=== PATIENT | male | born 2000 | race Caucasian/White ===

== ENCOUNTER 2021-04-04 13:05 | Outpatient (REF) | payer BC, SELFPAY ==
[2021-04-04 15:26] LABS: Binax Internal Control QC Valid; Binax Now Covid-19 Ag Negative (Negative)
== END 2021-04-04 13:06 | disposition home or self-care (01) ==
LOC: HO.LAB 13:05
PROVIDERS: Visit Provider Internal Medicine
DX: Z20.822 Contact with and (suspected) exposure to COVID-19 (principal)
CPT/HCPCS: 36415; C9803

== ENCOUNTER 2021-07-20 17:44 | Emergency (ER) | payer BC, SELFPAY ==
[2021-07-20 17:54] VITALS: BP 150/85; PULSE 89; RESP 17; TEMP 36.7; O2SAT 98; BMI 37.3
--- NOTE | 2021-07-20 20:08 | ED_ITS ---
HPI - Skin/Abscess/Foreign Bdy General Chief complaint: Skin/Abscess/Foreign Body Stated complaint: Abscess Time Seen by Provider: 07/20/21 19:24 Source: patient Mode of arrival: ambulatory Limitations: no limitations History of Present Illness HPI narrative: Patient presents to the emergency department for evaluation of a cyst to his tailbone. He reports a similar cyst 2 months ago which required incision and drainage for relief. He was evaluated at an urgent care and was advised to follow up in the emergency department. He had a telehealth visit with his doctor today who prescribed a course of Bactrim, which he has picked up from the pharmacy but has not yet began taking. He is concerned that it may need to be drained again. There was significant discomfort especially with prolonged sitting, he has been applying tea tree oil to the area without significant improvement. Denies fevers, chills, active drainage, back pain, numbness or tingling of the perineum or year the legs, bowel or bladder incontinence, history of IV drug use, immune compromising conditions. Related Data Allergies Allergy/AdvReac Type Severity Reaction Status Date / Time acetaminophen [From TYLENOL] Allergy Unknown RUNNY Verified 07/20/21 18:08 NOSE/FACIAL FLUSHING Review of Systems Review of Systems: Constitutional :? Denies history of same, Denies any other sites involved, Denies IV drug use, Denies history of MRSA, Denies swollen glands, Denies injury, Denies Fever, Denies Chills, + Sig Pain, Denies Systemic symptoms Cardiovascular : No Chest Pain, No SOB Respiratory : No Dyspnea Gastrointestinal : No abdominal pain Musculoskeletal : No Joint Swelling Skin : coccyx with surrounding erythema, No skin laceration, No Foreign bodies, No spreading rash, Denies bites, Denies discharge Neuro : No Weakness, No Numbness/tingling Psych : No SI/HI/thoughts of self injury Yes all other systems are reviewed and are negative PMFSH Past Medical History Attestation statement: The following information was validated with the patient. Source: old records reviewed Medical History Hypertension Social History Social History Advance Directives: No Advance Directives Information Provided: No Physical Exam Vital Signs: Vital Signs: Last Vital Signs Temp 98.1 F 07/20/21 17:54 Pulse 89 07/20/21 17:54 Resp 17 07/20/21 17:54 BP 150/85 H 07/20/21 17:54 Pulse Ox 98 07/20/21 17:54 BMI result Body Mass Index 37.3 Vital signs have been reviewed as normal and appeared to be correct. Blood pressure Elevated 150/85. Heart rate normal.? Respiration rate normal. Temperature normal.? Oxygen saturation normal. Appearance: Alert.?Oriented to person, place and time. No acute distress.?Normal affect. Eyes: Pupils equal, round and reactive to light.? ENT: Pharynx normal.?? Neck: Normal inspection.? Neck supple.?? CVS: Heart sounds normal. Normal heart rate and rhythm.? Pulses normal.?? Respiratory: No respiratory distress.? Lung sounds clear to auscultation bilaterally?? Abdomen: Soft and non-tender. Skin: Skin warm and dry.? type of gluteal cleft with 4 scabbed/crusted lesions, mild surrounding erythema, no palpable warmth, no areas of fluctuance. Extremities: No lower extremity edema.? Neuro: Moves all extremities spontaneously. Sensation intact bilaterally. CN II- XII intact. No focal neuro deficits. Ambulates with normal steady gait. Course Course Course Narrative: Patient is a 21-year-old male with a past medical history of hypertension and pilonidal cyst. presents to the emergency department for evaluation of concern for recurrent pilonidal cyst. Has lesions and redness to the top of the gluteal cleft. bedside ultrasound without visible abscess for drainage, and there is no fluctuance. Area appears cellulitic, has already been prescribed a course of antibiotics which he has not yet began. Not consistent with perianal abscess, epidural abscess, no history of Crohn's disease, without signs of systemic infection or immunocompromising conditions. Discussed conservative management, completion of antibiotic course as prescribed by his doctor, provided with contact information for outpatient follow-up with General surgery as this has been recurrent for him. Discussed reasons return back to the emergency department. All questions were answered. Discharge Plan Discharge Clinical Impression: Pilonidal disease Patient Disposition: Home, Self-Care Instructions: Cellulitis (ED) Additional Instructions: Take the antibiotics as prescribed by your doctor. Arrange for follow-up visit within 5-7 days. Apply warm moist compresses, and try soaked and the bath today. ibuprofen as needed for pain. Return to the emergency department with any new or worsening symptoms or concerns such as increased redness, swelling pus or drainage, fevers, chills worsening, back pain, numbness or tingling, weakness, chest pain, shortness of breath. You may contact the general surgeon's office for further evaluation as this has been recurrent for you. Referrals: Rasta Patel MD [Physician] - 2 weeks (recurrent pilondial cyst)
== END 2021-07-20 20:54 | disposition home or self-care (01) ==
PROVIDERS: Emergency Provider Internal Medicine
DX: L05.91 Pilonidal cyst without abscess (principal); L02.212 Cutaneous abscess of back [any part, except buttock and flank]; Z79.899 Other long term (current) drug therapy
CPT/HCPCS: 99282; 99284

== ENCOUNTER 2023-08-08 08:57 | Outpatient (AMB) | payer OTHER, SELFPAY ==
--- NOTE | 2023-08-08 09:06 | A.OFFPC_ITS ---
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: No Accompanied by: Self / Same As Patient Allergies ibuprofen [From Advil] Allergy (Intermediate, Verified 08/08/23 09:19) Flushing acetaminophen [From TYLENOL] Allergy (Unknown, Verified 08/08/23 09:19) RUNNY NOSE/FACIAL FLUSHING Medication List - Last Reconciled 08/08/23 by Yudi Hsu CNP No Known Home Meds Tobacco use date assessed: 08/08/23 Dental Screening Dental Screen Date: 08/08/23 Did you have a dental visit in the last 12 months?: Yes Did you have a dental problem in the last 6 months where you did not have access to dental care?: No Was dental information given to patient?: Patient has dentist HPI HPI Comments History of Present Illness Details New patient Prior PCP:? 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 Martinez. He found out that practice was closed and office building was sold and therefore unable to obtain his medical record Last office visit/CPE: About 5 years Acute issue(s): Recurrent pilonidal cyst to his coccyx. No acute symptoms at this time. Requests a referral for consult Reports h/o HTN, was on Lisinopril until 2019. He stopped taking the medication after her ran out of refill and did not have a PCP to renew the medication He notes that he has not been making healthy dietary or exercising PMHx: HTN (not on meds), myopia SurgHx: None FHx: Mom: HTN, MGM SocHx: Nonsmoker; vapes daily for the past 5 years, drinks alcohol on weekends. Smokes 2g cannabis daily for the past 5 years He notes that he is sexually active, in a monogamous relationship, and has no concerns for STD PFSH Medical History (Updated 08/08/23 @ 09:56 by Yudi Hsu CNP) Hypertension Surgical History (Updated 08/08/23 @ 09:20 by LEE ANN Armstrong) No pertinent past surgical history Family History (Updated 08/08/23 @ 09:21 by LEE ANN Armstrong) Mother High blood pressure Maternal Grandmother High blood pressure Social History (Updated 08/08/23 @ 09:17 by LEE ANN Armstrong) Household Members: Family Housing: Apartment Are you a primary care companion to a significant other at home: No Do you presently have visiting nurse or other home services: No Alcohol intake: current Alcohol intake frequency: holidays/special occasions only Patient Tobacco Use Status: Former Tobacco user e-Cigarette/Vaping Use: Currently Using Second Hand Smoke Exposure: No service: No Current occupational status: employed 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 1. Little interest or pleasure in doing things: several days 2. Feeling down, depressed, or hopeless: not at all 3. Trouble falling or staying asleep, or sleeping too much: not at all 4. Feeling tired or having little energy: not at all 5. Poor appetite or overeating: several days 6. Feeling bad about yourself - or that you are a failure or have let yourself or your family down: not at all 7. Trouble concentrating on things, such as reading the newspaper or watching television: not at all 8. Moving or speaking so slowly that other people could have noticed. Or the opposite - being so fidgety or restless that you have been moving around a lot more than usual: not at all 9. Thoughts that you would be better off or of hurting yourself in some way: not at all Total score: 2 Depression Screening Interpretation: Negative Depression Screening Done: Yes 83158 - PHQ-9 Billing: Yes Source: Developed by Drs. Oswaldo Berger, Shara De Jesus, José Miguel Barriga and colleagues, with an educational sierra from [employer]. Thrive Questionnaire Date Thrive assessed: 08/08/23 I am a: Patient What is your living situation today?: I have a steady place to live Within the past 12 months, did the food you bought not last and you didn't have the money to get more?: Never true Within the past 12 months, did you worry whether your food would run out before you got money to buy more?: Never true Do you have trouble paying for medicines?: No Do you have trouble getting transportation to medical appointments?: No Do you have trouble paying your heating and electricity bill?: No Do you have trouble taking care of your child, family member or friend?: No Do you have trouble with day-to-day activities such as bathing, preparing meals, shopping, managing finances, etc.?: No Are you currently unemployed and looking for a job?: No Are you interested in more education?: No Please select the resources that you would like help with: None Currently or been in a relationship where the following occur: no concerns reported THRIVE Score: 0 AUDIT C Alcohol Use Questionnaire (AUDIT-C) 1. How often do you have a drink containing alcohol?: Monthly or less 2. How many drinks containing alcohol do you have on a typical day when you are drinking?: 3 or 4 3. How often do you have six or more drinks on one occasion?: Never Total Score: 2 DANII-7 AMB Questionnaire DANII-7 Date DANII - 7 assessed: 08/08/23 Feeling nervous, anxious, or on edge: 0 = Not at all Not being able to stop or control worryin = Not at all Worrying too much about different things: 1 = Several days Trouble relaxin = Not at all Being so restless that it is hard to sit still: 0 = Not at all Becoming easily annoyed or irritable: 0 = Not at all Feeling afraid as if something awful might happen: 0 = Not at all Total DANII-7 score (0-4 normal; 5-9 mild; 10-14 moderate; 15-21 severe): 1 Source: Developed by Drs. Oswaldo Berger, Shara De Jesus, José Miguel Barriga and colleagues, with an educational sierra from [employer]. DANII-7 Assessment Billing DANII-7 Assessment Tool: DANII-7 Assessment 44933 Review of Systems Const Details: Denies chills, Denies fatigue, Denies fever(s), Denies headache(s) and Denies weakness HEENT Denies change in vision, Denies dizziness, Denies headache(s), Denies hearing loss, Denies nasal congestion, Denies sinus pain, Denies sinus pressure and Denies sore throat Card Denies chest pain, Denies lightheadedness, Denies dyspnea and Denies other (palpitations) Resp Denies cough, Denies dyspnea and Denies wheezing GI Denies abdominal pain, Denies melena, Denies hematochezia, Denies change in bowel habits, Denies dyspepsia and Denies nausea Denies hematuria and Denies dysuria Musc Denies abnormal gait, Denies myalgias, Denies arthralgias, Denies numbness and Denies tingling Skin/Breast Denies rash, Denies unusual bruising and Denies wounds Neuro Denies abnormal gait, Denies dizziness, Denies headache(s), Denies memory loss, Denies numbness, Denies Sensory deficit (Neuro), Denies tingling and Denies weakness Psych Denies anxiety, Denies depression and Denies memory loss Endo Denies cold intolerance, Denies fatigue, Denies heat intolerance, Denies polydipsia and Denies polyuria Jake/Lymph Denies easy bleeding and Denies easy bruising Aller/Immun Denies wheezing Physical exam (Primary Care) Vital Signs: Last Vital Signs Temp 97.5 F 08/08/23 09:07 Pulse 71 08/08/23 09:07 Resp 13 08/08/23 09:07 BP 126/64 08/08/23 09:07 Pulse Ox 99 08/08/23 09:07 Oxygen Delivery Method Room Air 08/08/23 09:07 BMI result Body Mass Index 35.7 Tobacco/Smoking Status: Tobacco use Status Patient Tobacco Use Status Former Tobacco user 08/08/23 09:16 e-Cigarette/Vaping Use Currently Using 08/08/23 09:16 Depression Screening Interpretation: Negative Currently or been in a relationship where the following occur: no concerns reported Const Other: General: no acute distress, well developed, alert and awake Nutritional Appearance: well nourished Orientation/consciousness: patient oriented x3 HENMT Head: Yes normocephalic and Yes atraumatic Ears: hearing grossly normal bilaterally and TM's normal bilaterally General nose exam: Normal external nose present and Normal nares present Mouth: Normal oral and palatal mucosa present and moist mucous membranes Teeth and gingiva: dentition normal Throat: Yes oropharynx normal Eyes Pupils: Equal, round and reactive pupils present and Pupil accommodation reflex normal EOM: EOMs intact bilaterally Neck Neck: Yes normal visual inspection, Yes no lymphadenopathy and Yes trachea midline Thyroid: Thyroid normal Carotids: no bruits Lymphatic: no lymphadenopathy noted Chest Chest palpation & inspection: normal inspection of the chest Resp Effort & Inspection: normal respiratory effort Auscultation: clear to auscultation bilaterally Cardio Rate: regular rate Rhythm: regular rhythm Heart sounds: S1 normal heart sound present, S2 normal heart sound present, no gallops, no murmurs and no rubs Bruits: no abdominal aortic bruits and no carotid bruits GI Palpation (GI): No Abdominal aortic bruit present, Soft to palpation, nontender, No hepatosplenomegaly present and No Rebound tenderness present Auscultation: normal bowel sounds General: Yes no CVA tenderness Back/Spine/Pelvis Back: no CVA tenderness Cervical Spine: cervical ROM normal and No Cervical spine tenderness Thoracic/Lumbar Spine: thoraco-lumbar ROM normal, No pain with thoraco-lumbar ROM, No thoracic spinal tenderness and No lumbar spinal tenderness Skin General: warm and dry. Normal skin color. Normal skin turgor Lesions: no lesions Rashes: no rashes Trauma: no lacerations or abrasions Wounds: no wounds Nails: normal Neuro General: patient oriented x3, gait normal and CN's II-XI intact bilaterally Cranial nerves: Yes Equal, round and reactive pupils present Cognition (Neuro): normal cognition Gait exam (Neuro): Normal gait present Motor exam (neuro): 5/5 motor strength present throughout Sensory Exam: No Sensory deficit (Neuro) Deep tendon reflexes (DTR's): Right patellar reflex intensity grade: 2+ and Left patellar reflex intensity grade: 2+ Extrem General: Yes normal to inspection, No edema and No calf tenderness Psych Appearance: grossly normal Affect: normal affect Attitude: cooperative Thought process: Normal thought process present Assessment and Plan Assessment & Plan (1) Normal physical examination, routine: Code(s): Z00.00 - Encounter for general adult medical examination without abnormal findings Plan: No significant physical restrictions or limitations noted Healthy diet and routine exercise encouraged Advised to get urinalysis and fasting blood work done Follow-up in 1 month for hypertension and labs review Return sooner with symptoms or concerns Verbalized understanding and agreed with treatment plan (2) Hypertension: Code(s): I10 - Essential (primary) hypertension Plan: History of hypertension. He was on lisinopril until 4 years ago Resting blood pressure is 120/80, within goal of less than 140/90 Low-sodium diet encouraged Follow-up in 1 month or return sooner with symptoms or concerns Verbalized understanding and agreed with treatment plan (3) Obesity (BMI 30-39.9): Code(s): E66.9 - Obesity, unspecified Plan: He currently weighs 256 lb, BMI is 35.7 Healthy diet and routine exercise encouraged Referred to [facility] dietitian/auto phone installer (4) Chronic recurrent pilonidal cyst: Code(s): L05.91 - Pilonidal cyst without abscess Plan: No acute signs and symptoms Referred to [facility] general surgery Follow-up with symptoms or concerns Verbalized understanding and agreed with treatment plan (5) Current every day vaping: Code(s): Z72.89 - Other problems related to lifestyle Plan: He has been vaping daily for the past 5 years Instructed on the health risks and complications of vaping and encouraged to stop vaping He verbalized understanding and agreed with the plan (6) Myopia of both eyes: Code(s): H52.13 - Myopia, bilateral Plan: Corrected with prescription glasses (7) Laboratory tests ordered as part of a complete physical exam (CPE): Code(s): Z00.00 - Encounter for general adult medical examination without abnormal findings Plan: Fasting labs ordered as part of a complete physical exam. Advised to fast for at least 10 hours before getting labs drawn. May drink water Verbalized understanding and agreed with treatment plan. Orders: Orders UA CC w/rflx Micro + Cult Today Z00.00 - Encounter for general adult medical examination without abnormal findings Complete Blood Count Auto Diff Today Z00.00 - Encounter for general adult medical examination without abnormal findings Comprehensive Watson. Panel Fast Today Z00.00 - Encounter for general adult medical examination without abnormal findings Lipid Panel Today Z00.00 - Encounter for general adult medical examination without abnormal findings TSH reflex Free T4 Today Z00.00 - Encounter for general adult medical examination without abnormal findings Referrals Nutrition/Dietitian Referral E66.9 - Obesity, unspecified General Surgery Referral L05. - Pilonidal cyst without abscess Coding Level of Care Code New Pt Level 4 (19120) New Pt Prev Care 18-39yr(20696 Diagnoses Normal physical examination, routine Z00.00 Hypertension I10 Obesity (BMI 30-39.9) E66.9 Chronic recurrent pilonidal cyst L05.91 Current every day vaping Z72.89 Myopia of both eyes H52.13 Laboratory tests ordered as part of a complete physical exam (CPE) Z00.00 Additional Codes DANII-7 Assessment Billing - DANII-7 Assessment Tool: DANII-7 Assessment 25683 ([id number])
[2023-08-08 09:07] VITALS: BP 126/64; PULSE 71; RESP 13; TEMP 36.4; O2SAT 99; BMI 35.7
[2023-08-08 09:37] VITALS: BP 120/80
== END 2023-08-08 09:52 | disposition home or self-care (01) ==
PROVIDERS: Visit Provider Nurse Practitioner Family
DX: Z00.00 Encounter for general adult medical examination without abnormal findings (principal); I10 Essential (primary) hypertension; Z68.35 Body mass index [BMI] 35.0-35.9, adult; E66.9 Obesity, unspecified; L05.91 Pilonidal cyst without abscess; Z72.89 Other problems related to lifestyle; H52.13 Myopia, bilateral
CPT/HCPCS: 99385

== ENCOUNTER 2023-08-08 09:58 | Outpatient (REF) | payer OTHER, SELFPAY ==
[2023-08-08 11:40] LABS: MANUAL DIFF FLAG NO
[2023-08-08 11:40] LABS: Appearance Urine Clear; Color Urine Yellow; Glucose Urine UA Negative (Negative); Leukocyte Esterase Urine Negative (Negative); Nitrite Urine Negative (Negative); Specific Gravity - Urine <= 1.005 (1.005-1.025); Urine Blood Negative (Negative); Urine Ketones Negative (Negative); Urine Protein Negative (Neg-Trace)
[2023-08-08 11:46] LABS: Basophils Absolute Auto 0.1 X10*3/uL (0.0-0.2); Basophils Percent Auto 0.7 % (0-2); Eosinophils Absolute Auto 0.2 X10*3/uL (0.0-0.4); Eosinophils Percent Auto 1.6 % (0-4); Hematocrit 44.6 % (42.0-52.0); Hemoglobin 15.1 g/dl (14.0-18.0); Imm Gran Abs Auto 0.03 X10*3/uL (0.00-0.03); Imm Gran Pct Auto 0.3 % (0.0-0.4); Lymphocytes Absolute Auto 2.8 X10*3/uL (1.2-4.9); Lymphocytes Percent Auto 31.2 % (20-40); Mean Corpuscular HGB Conc 33.9 g/dl (31.0-36.0); Mean Corpuscular Hemoglobin 29.3 pg (27.0-33.0); Mean Corpuscular Volume 86.6 fL (80.0-98.0); Mean Platelet Volume 9.5 fL (9.4-12.4); Monocytes Absolute Auto 0.6 X10*3/uL (0.1-1.2); Neutrophils Absolute Auto 5.4 x10*3/uL (2.0-8.3); Neutrophils Percent Auto 59.2 % (45-73); Platelet Count 234 X10*3/uL (160-400); Red Blood Count 5.15 X10*6/uL (4.60-5.80); Red Cell Distribution Width 12.4 % (11.0-16.0); White Blood Count 9.1 X10*3/uL (4.8-10.8)
[2023-08-08 12:54] LABS: Alanine Aminotransferase 24 U/L (0-40); Albumin Level 4.7 g/dL (3.5-5.0); Alkaline Phosphatase 69 U/L (39-117); Anion Gap 14 (12-20); Aspartate Amino Transferase 18 U/L (5-37); Bilirubin Total 0.4 mg/dL (0.0-1.0); Blood Urea Nitrogen 8 mg/dL (9-16); Calcium 9.9 mg/dL (8.4-10.2); Carbon Dioxide 28 mmol/L (22-29); Chloride 105 mmol/L (96-108); Cholesterol 135 mg/dL (<200); Estimated Glomerular Filt Rate > 60; Glucose Fasting 97 mg/dL (60-99); HDL Cholesterol 32 mg/dL (>40); LDL Cholesterol Calculated 86 mg/dL (<100); Potassium 4.6 mmol/L (3.3-5.1); Sodium 142 mmol/L (135-145); Total Protein 7.7 g/dL (6.5-8.0); Triglycerides 88 mg/dL (<150)
== END 2023-08-08 09:59 | disposition home or self-care (01) ==
LOC: HO.WFDLDS 09:58
PROVIDERS: Visit Provider Nurse Practitioner Family
DX: Z00.00 Encounter for general adult medical examination without abnormal findings (principal); Z13.6 Encounter for screening for cardiovascular disorders
CPT/HCPCS: 36415; 80053; 80061; 81003; 84443; 85025

== ENCOUNTER 2023-08-11 14:53 | Outpatient (AMB) | payer OTHER, SELFPAY ==
--- NOTE | 2023-08-11 14:57 | A.OFFVIS_ITS ---
Vital Signs 08/11/23 15:01 Height 5 ft 11 in Weight 251 lb BMI 35.0 BP 145/86 H Blood Pressure Location Rt brachial Position Sitting Pulse 101 H Intake Visit Reasons: pilonidal cyst Intake Note: Patient referred after ER visit in June. Patient c/o: pilonidal cyst on gluteal cleft. Present for 2yrs. Previous txt includes different antibiotics. Information Services Assistant Required: No Accompanied by: Joy girlfriend Allergies ibuprofen [From Advil] Allergy (Intermediate, Verified 08/11/23 15:03) Flushing acetaminophen [From TYLENOL] Allergy (Unknown, Verified 08/11/23 15:03) RUNNY NOSE/FACIAL FLUSHING HPI Comments Details: Patient presents with his significant other for evaluation of a several year history of symptomatic pilonidal cyst of the cleft. He has had this lanced at least 2-3 times by various ERs. This latest episode the cyst spontaneously drained. This happened several days ago. Presents here for further evaluation. Chart was reviewed patient evaluated [facility] Medical History Hypertension Surgical History No pertinent past surgical history Family History Mother High blood pressure Maternal Grandmother High blood pressure Social History Household Members: Family Both parents involved: Yes Caregiver staying overnight: No Housing: Apartment Are you a primary child care worker to a significant other at home: No Do you presently have visiting nurse or other home services: No 75 years or older and lives alone: No Alcohol intake: current Alcohol intake frequency: holidays/special occasions only Patient Tobacco Use Status: Former Tobacco user e-Cigarette/Vaping Use: Currently Using Second Hand Smoke Exposure: No service: No Current occupational status: employed 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 No active abscess or cellulitis d emonstrated. Assessment & Plan Assessment & Plan (1) Pilonidal cyst of consuelo cleft: Code(s): L05.91 - Pilonidal cyst without abscess Category: Surgical Plan Patient would like to have this excised. Risks, benefits, alternatives of the procedure were extensively reviewed with the patient which included but not limited to bleeding, infection, recurrence, numbness, pain, scarring, wound dehiscence if the patient is not sedentary during the healing process and the patient wishes to proceed. All questions answered. Arrangements were made for this. Coding Level of Care Code New Pt Level 5 (83600) Diagnoses Pilonidal cyst of consuelo cleft L05.91
[2023-08-11 15:01] VITALS: BP 145/86; PULSE 101; BMI 35.0
== END 2023-08-11 15:21 | disposition home or self-care (01) ==
PROVIDERS: Visit Provider Surgery
DX: L05.91 Pilonidal cyst without abscess (principal)
CPT/HCPCS: 99204

== ENCOUNTER → 2023-08-11 14:53 | Outpatient (BNVA) | payer OTHER, SELFPAY | PROVIDERS: Visit Provider Surgery ==

== ENCOUNTER 2023-08-27 14:39 | Outpatient (AMB) | payer OTHER, SELFPAY ==
[2023-08-27 14:41] VITALS: BMI 37.1
--- NOTE | 2023-08-27 14:41 | A.OFFVIS_ITS ---
VS Expanded 08/27/23 14:41 09/02/23 21:07 Height 5 ft 11 in 5 ft 11 in Weight 265 lb 14.04 oz 266 lb BMI 37.1 37.1 Intake Visit Reasons: Obesity Allergies ibuprofen [From Advil] Allergy (Intermediate, Verified 08/11/23 15:03) Flushing acetaminophen [From TYLENOL] Allergy (Unknown, Verified 08/11/23 15:03) RUNNY NOSE/FACIAL FLUSHING Nutrition Presentation Details: Pt presents for MNT for obesity. Pt was referred by PCP Janet Powell. Pt reports lacking meal routine 10-1 pm L: chicken 2 empanadas, and beef tacos and drink mountain dew or water or 2 peanut butter and jelly sand and vit water 6-10 pm dinner : pasta /luis , broccoli , water or juice or cranberry juice snack : dorito sweet and spicy kettle corn or snacks stopped vaping 1 1/2 wks ago, denies diarrhea/constipation denies ETOH physical activity: sedentary BS Monitoring Most Recent Diabetes Results: Cholesterol 135 mg/dL (<200) 08/08/23 HDL Cholesterol 32 mg/dL (>40) L 08/08/23 Triglycerides 88 mg/dL (<150) 08/08/23 Creatinine 1.07 mg/dL (0.5-1.4) 08/08/23 Blood Urea Nitrogen 8 mg/dL (9-16) L 08/08/23 Sodium 142 mmol/L (135-145) 08/08/23 Potassium 4.6 mmol/L (3.3-5.1) 08/08/23 Chloride 105 mmol/L (96-108) 08/08/23 Carbon Dioxide 28 mmol/L (22-29) 08/08/23 Calcium 9.9 mg/dL (8.4-10.2) 08/08/23 AST 18 U/L (5-37) 08/08/23 ALT 24 U/L (0-40) 08/08/23 Total Protein 7.7 g/dL (6.5-8.0) 08/08/23 Albumin 4.7 g/dL (3.5-5.0) 08/08/23 GAQ-Nxohvwe-Mn.Jeor Equation Height: 5 ft 11 in Weight: 266 lb Resting Metabolic Rate: 2214.47 Calculated Activity Level: Sedentary Calories Needed to Maintain Weight: 2657.36 Diagnosis Nutrition problem #1: excessive energy intake and food nutri know defi As related to (etiology) #1: diagnosis As evidenced by (sign/symptom) #1: knowledge deficit of diet Monitoring/Goals Nutrition problem monitoring: level of knowledge/skill, total PRO intake and weight Nutrition goal/outcome: wt loss 5lbs in 2 months Learning/Education Readiness to learn: good Stages of change: preparation PFSH Medical History Hypertension Surgical History No pertinent past surgical history Family History Mother High blood pressure Maternal Grandmother High blood pressure Social History Household Members: Family Both parents involved: Yes Caregiver staying overnight: No Housing: Apartment Are you a primary healthcare administrative assistant to a significant other at home: No Do you presently have visiting nurse or other home services: No 75 years or older and lives alone: No Alcohol intake: current Alcohol intake frequency: holidays/special occasions only Patient Tobacco Use Status: Former Tobacco user e-Cigarette/Vaping Use: Currently Using Second Hand Smoke Exposure: No service: No Current occupational status: employed 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 Cognitive needs: No Hearing needs: No Vision needs: Yes Assessment & Plan Assessment & Plan (1) Obesity (BMI 30-39.9): Code(s): E66.9 - Obesity, unspecified Category: Medical Plan: Wt: 121 Kg ( 07/2023 ) Est kcal needs as per MSJ: 6745-5872 (40% carb, 30% protein/fat) Est fluid needs as per 25-30 ml/d: 3600 Est prot per day as per 1 g/kg bw: 121 Recommend fiber intake : 8-10 g per day and gradually increase to 25-28 g per day for women and 35-38 g for men or as tolerated Recommend sodium intake per day : less than 2000 mg Educated patient on: ( R = reviewed V = verbalizes understanding N/R = needs review N/A = not applicable * Food sources of carbohydrate, adequate serving sizes and its role in various health conditions: R * Differences between complex carbohydrates a simple carbohydrates, role of fiber in diet: R * Lean protein sources of foods: R * Differences between types of fats and role in diet (mono on saturated fat fatty acids, saturated fatty acids, trans fats): R V N/R * Food sources of sodium in salt and healthy modifications for heart health in kidney health: R V R/V * Vitamins and minerals: R V N/R * Healthy plate method concept: R * Physical activity: Benefits a precaution: R V N/R * Patient Instructions: Practice mindful eating Work on having 3 scheduled meals per day following healthy plate method Coding Level of Care Code Nutr Indiv Intake (45856) Diagnoses Obesity (BMI 30-39.9) E66.9 Time Spent (min) 30
[2023-09-02 21:07] VITALS: BMI 37.1
== END 2023-08-27 15:13 | disposition home or self-care (01) ==
PROVIDERS: Visit Provider Dietitian, Registered
DX: E66.9 Obesity, unspecified (principal)

== ENCOUNTER → 2023-08-27 14:39 | Outpatient (BNVA) | payer OTHER, SELFPAY | PROVIDERS: Visit Provider Dietitian, Registered | DX: E66.9 Obesity, unspecified (principal); Z68.37 Body mass index [BMI] 37.0-37.9, adult; Z71.3 Dietary counseling and surveillance | CPT/HCPCS: 97802 ==

== ENCOUNTER 2023-09-05 05:42 | Day surgery (SDC) | payer OTHER, SELFPAY ==
[2023-09-03 13:59] VITALS: BMI 35.0
--- NOTE | 2023-09-04 12:43 | MHC.SHP ---
Pre-Procedural Eval Section A - 24 Hr Update-Section A only Date of Service: 09/04/23 The patient is an INPATIENT: No Changes since office visit: No Cold of Flu in the past 2 weeks, No New Medical Problems, No Changes in Medication and No Patient answered all questions Section B - Complete if H&P > 30 days Chief Complaint: Pilonidal cyst without abscess Allergies: Allergies Allergy/AdvReac Type Severity Reaction Status Date / Time ibuprofen [From Advil] Allergy Intermediate Flushing Verified 08/11/23 15:03 acetaminophen [From TYLENOL] Allergy Unknown RUNNY Verified 08/11/23 15:03 NOSE/FACIAL FLUSHING Plan I have reviewed the history and physical and performed a pertinent physical examination on my patient. No changes have occurred unless specified. Time Spent With Patient Time: Total time managing care of this patient today ____ minutes.
[2023-09-05 05:56] VITALS: BP 156/85; PULSE 80; RESP 20; TEMP 36.8; O2SAT 98; BMI 36.7
[2023-09-05] MEDS: Lactated Ringers 1,000 ML 100 ML IVCONT (06:22)
--- NOTE | 2023-09-05 07:10 | P.CONAN_ITS ---
Documented by User: Linda Orr NP 09/04/23 09:52 HPI - Anesthesia Eval Consult details Narrative: 23yo M for Wide Local Excision of Pilonidal Cyst Juliano Cleft PMFSH Active Problems Active Problems: All Active Problems Pilonidal cyst of juliano cleft (Acute) Myopia of both eyes (Acute) Current every day vaping (Acute) Chronic recurrent pilonidal cyst (Acute) Obesity (BMI 30-39.9) (Acute) Hypertension (Acute) Normal physical examination, routine (Acute) Laboratory tests ordered as part of a complete physical exam (CPE) (Acute) Past Medical History Medical History Hypertension Family History Family History Mother High blood pressure Maternal Grandmother High blood pressure Surgical History Surgical History No pertinent past surgical history Social History Social History Household Members: Family Housing: Apartment Are you a primary special needs child caregiver to a significant other at home: No Do you presently have visiting nurse or other home services: No Alcohol intake: current Alcohol intake frequency: does not drink Patient Tobacco Use Status: Former Tobacco user Tobacco use type: Smokeless Tobacco e-Cigarette/Vaping Use: Currently Using Second Hand Smoke Exposure: No Are you DNR?: No Advance Directives: No Advance Directives Information Provided: Yes service: No Current occupational status: employed 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 Cognitive needs: No Hearing needs: No Vision needs: Yes Meds Allergies Allergy/AdvReac Type Severity Reaction Status Date / Time ibuprofen [From Advil] Allergy Intermediate Flushing Verified 09/05/23 06:10 acetaminophen [From TYLENOL] Allergy Unknown RUNNY Verified 09/05/23 06:10 NOSE/FACIAL FLUSHING Home Medications ?Medication ?Instructions ?Recorded ?Confirmed ?Last Taken ?Type No Known Home Meds 08/08/23 09/05/23 Unknown History Exam Height,Weight and Vital Signs: Height 5 ft 11 in Weight 113.852 kg Pertinent Lab Results Pertinent Lab Results: Laboratory Tests 08/08/23 10:01 WBC 9.1 Hgb 15.1 Hct 44.6 Plt Count 234 Sodium 142 Potassium 4.6 Chloride 105 Carbon Dioxide 28 BUN 8 L Creatinine 1.07 Assessment and Plan Assessment Anesthesia Assessment: Chart Reviewed Documented by User: Blanca Noble DO 09/05/23 07:12 HPI - Anesthesia Eval Consult details Narrative: 23yo M for Wide Local Excision of Pilonidal Cyst Cleft. Vapes and uses marijuana. stopped vaping 2.5 weeks ago. PMFSH Past Medical History Medical History Hypertension Family History Family History Mother High blood pressure Maternal Grandmother High blood pressure Family history of problems with anesthesia: No Surgical History Surgical History No pertinent past surgical history History of Problems with Anesthesia: No Social History Social History Household Members: Family Housing: Apartment Are you a primary special needs child caregiver to a significant other at home: No Do you presently have visiting nurse or other home services: No Alcohol intake: current Alcohol intake frequency: does not drink Patient Tobacco Use Status: Former Tobacco user Tobacco use type: Smokeless Tobacco e-Cigarette/Vaping Use: Currently Using Second Hand Smoke Exposure: No Are you DNR?: No Advance Directives: No Advance Directives Information Provided: Yes service: No Current occupational status: employed 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 Cognitive needs: No Hearing needs: No Vision needs: Yes Meds Allergies Allergy/AdvReac Type Severity Reaction Status Date / Time ibuprofen [From Advil] Allergy Intermediate Flushing Verified 09/05/23 06:10 acetaminophen [From TYLENOL] Allergy Unknown RUNNY Verified 09/05/23 06:10 NOSE/FACIAL FLUSHING Home Medications ?Medication ?Instructions ?Recorded ?Confirmed ?Last Taken ?Type No Known Home Meds 08/08/23 09/05/23 Unknown History Exam Exam Date and Time: September 05, 202308 Height,Weight and Vital Signs: Height 5 ft 11 in Weight 113.852 kg Height 5 ft 11 in Weight 119.3 kg Vital Signs Temperature 98.2 F 09/05/23 05:56 Pulse Rate 80 09/05/23 05:56 Respiratory Rate 20 09/05/23 05:56 Blood Pressure 156/85 H 09/05/23 05:56 Pulse Oximetry 98 09/05/23 05:56 Oxygen Delivery Method Room Air 09/05/23 05:56 Temperature 98.2 F 09/05/23 05:56 Pulse Rate 80 09/05/23 05:56 Respiratory Rate 20 09/05/23 05:56 Blood Pressure 156/85 H 09/05/23 05:56 Pulse Oximetry 98 09/05/23 05:56 Oxygen Delivery Method Room Air 09/05/23 05:56 Airway Mallampati Class: II TM Dist: >3cm Neck ROM: Full Loose/Missing/Broken Teeth: No (patient denies any loose or broken teeth) Heart: S1S2 Lungs: CTAB Assessment and Plan Assessment Anesthesia Assessment: Anesthesia Plan Discussed and Chart Reviewed Final Anesthetic Review Family History of Problems with Anesthesia: No History of Problems with Anesthesia: No NPO: Yes ASA Class: II Final Preanesthetic Review: No Changes in Pt Med Stat, Meds/Allgs Chart Reviewed, Consent Obtained/Reviewed and Anes Risks/Benef Reviewed Patient Risk: Low Procedure Risk: Low Anesthetic Plan Anesthetic Plan: GA and Agree w/ Assess. and Plan Disposition: Standard PACU
[2023-09-05 08:30] VITALS: BP 170/96; PULSE 74; RESP 12; TEMP 36.4; O2SAT 97
[2023-09-05 08:35] VITALS: BP 130/79; PULSE 71; RESP 18; O2SAT 100
[2023-09-05 08:40] VITALS: BP 127/70; PULSE 78; RESP 16; O2SAT 100
[2023-09-05 08:46] VITALS: BP 123/70; PULSE 79; RESP 18; O2SAT 100
--- NOTE | 2023-09-05 08:55 | P.OP_ITS ---
Operative Note Operative Note Date of Service: 09/05/23 Narrative: Preoperative diagnosis: [] Extensive pilonidal disease of the juliano cleft Postop diagnosis: [] The same Procedure [] wide local excision pilonidal disease/cyst of juliano cleft Surgeon: [] Flaquito Refining Machine Operator: [] Type of Anesthesia: [] General Indication for surgery: [] Patient has multiple sinus tracts and extensive induration of the juliano cleft area secondary to pilonidal disease Findings: [] Patient brought to the operating room, placed in the operative table in supine position, and after an adequate level of general anesthesia was induced, patient was placed in the prone maritza-knife position. Juliano cleft lower back area were prepped and draped in usual sterile fashion. Using longitudinal by elliptical incision encompassing all the diseased and involved skin area of pilonidal disease, this carried down through skin, subcutaneous tissue, and undermined using Bovie. Specimen sent to pathology. Wound was irrigated, and secured hemostasis. It was closed in the following manner; deep subcutaneous t issue to wound base to contralateral subcutaneous tissue interrupted 0 Vicryl was were initially placed. Interrupted inverted 2-0 Vicryl sutures followed by vertical mattress 0 Prolene sutures were then placed. 4x4s, ABD dressing were then applied. Wound was infiltrated with 0.5% Marcaine/1% lidocaine. Sponge, needle, and instrument counts were reported correct. Patient tolerated the procedure well and emerged from anesthesia stable condition. EBL minimal
[2023-09-05 09:00] VITALS: BP 123/78; PULSE 79; RESP 18; O2SAT 100
[2023-09-05] MEDS: oxyCODONE HCl Immed Release 5 MG TABLET PO (09:10)
== END 2023-09-05 09:40 | disposition home or self-care (01) ==
PROVIDERS: PCP Nurse Practitioner Family; Visit Provider Surgery
PROC: (CPT 11771; principal; 2023-09-05 07:30)
DX: L05.91 Pilonidal cyst without abscess (principal); I10 Essential (primary) hypertension; Z88.6 Allergy status to analgesic agent
CPT/HCPCS: 11771; 88304; J0330; J0690; J1100; J2250; J2405; J2704; J2795; J3010

== ENCOUNTER → 2023-09-05 05:42 | Outpatient (BNV) | payer OTHER, SELFPAY | PROVIDERS: PCP Nurse Practitioner Family; Visit Provider Surgery | DX: L05.91 Pilonidal cyst without abscess (principal) | CPT/HCPCS: 11771 ==

== ENCOUNTER 2023-09-15 09:55 | Outpatient (AMB) | payer OTHER, SELFPAY ==
--- NOTE | 2023-09-15 10:00 | A.OFFVIS_ITS ---
Intake Visit Reasons: s/p pilonidal cystectomy Intake Note: This patient presents for a post-op assessment status post pilonidal cystectomy. Patient c/o; reports his eye is still red. Administrative Asst Required: No Accompanied by: Other Relationship Allergies ibuprofen [From Advil] Allergy (Intermediate, Verified 09/15/23 10:07) Flushing acetaminophen [From TYLENOL] Allergy (Unknown, Verified 09/15/23 10:07) RUNNY NOSE/FACIAL FLUSHING HPI Comments Details: Patient presents with a significant other. He has been doing quite well. Incisional discomfort is markedly reduced. It is slowly increasing his activity level. Otherwise tolerating a diet, having regular bowel habits. Pathology is benign [facility] Medical History Hypertension Surgical History No pertinent past surgical history Family History Mother High blood pressure Maternal Grandmother High blood pressure Social History Household Members: Family Both parents involved: Yes Caregiver staying overnight: No Housing: Apartment Are you a primary inpatient care manager rn to a significant other at home: No Do you presently have visiting nurse or other home services: No 75 years or older and lives alone: No Alcohol intake: current Alcohol intake frequency: does not drink Comment: COUNT CORRECT Patient Tobacco Use Status: Former Tobacco user Tobacco use type: Smokeless Tobacco e-Cigarette/Vaping Use: Currently Using Second Hand Smoke Exposure: No service: No Current occupational status: employed 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 Sutures intact Assessment & Plan Assessment & Plan (1) Postop check: Code(s): Z09 - Encounter for follow-up examination after completed treatment for conditions other than malignant neoplasm Category: Surgical Plan Current plan is see the patient proximal weeks time for suture removal. He will be given noticed to sterile work until then. All questions answered. Coding Level of Care Code Global (37543) Diagnoses Postop check Z09
== END 2023-09-15 10:26 | disposition home or self-care (01) ==
PROVIDERS: PCP Nurse Practitioner Family; Visit Provider Surgery
DX: Z09 Encounter for follow-up examination after completed treatment for conditions other than malignant neoplasm (principal)
CPT/HCPCS: 99024

== ENCOUNTER → 2023-09-15 09:55 | Outpatient (BNVA) | payer OTHER, SELFPAY | PROVIDERS: PCP Nurse Practitioner Family; Visit Provider Surgery ==

== ENCOUNTER → 2023-09-16 10:26 | Outpatient (BNVA) | payer OTHER, SELFPAY | PROVIDERS: PCP Nurse Practitioner Family; Visit Provider Surgery | DX: Z48.01 Encounter for change or removal of surgical wound dressing (principal) | CPT/HCPCS: 99211 ==

== ENCOUNTER 2023-09-22 11:05 | Outpatient (AMB) | payer OTHER, SELFPAY ==
--- NOTE | 2023-09-22 11:12 | MHC.OFFVIS ---
Intake Visit Reasons: 1 wk follow up s/p pilonidal cystectomy Intake Note: Patient here s/p pilonidal cystectomy on 09-05-23. Patient c/o: oozing where sutures are placed. Wearing a pad due to consistent leakage. 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 He had some drainage from the inferior aspect of the incision has a dressing applied. He would like to return to work which is not strenuous. [facility] Medical History Hypertension Surgical History Pilonidal cyst of consuelo cleft (09/05/23) No pertinent past surgical history Family History Mother High blood pressure Maternal Grandmother High blood pressure Social History Household Members: Family Both parents involved: Yes Caregiver staying overnight: No Housing: Apartment Are you a primary day care home mother to a significant other at home: No Do you presently have visiting nurse or other home services: No 75 years or older and lives alone: No Alcohol intake: current Alcohol intake frequency: does not drink Comment: COUNT CORRECT Patient Tobacco Use Status: Former Tobacco user Tobacco use type: Smokeless Tobacco e-Cigarette/Vaping Use: Currently Using Second Hand Smoke Exposure: No service: No Current occupational status: employed 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 Sutures have been in 2 weeks and were uneventfully removed Assessment & Plan Assessment & Plan (1) Postop check: Code(s): Z09 - Encounter for follow-up examination after completed treatment for conditions other than malignant neoplasm Category: Surgical Plan Patient has been given local instructions including avoiding strenuous activities, no to return work for 4 weeks light duty, and we will otherwise follow-up p.r.n.. All questions answered. Coding Level of Care Code Global (20374) Diagnoses Postop check Z09
== END 2023-09-22 11:23 | disposition home or self-care (01) ==
PROVIDERS: PCP Nurse Practitioner Family; Visit Provider Surgery
DX: Z09 Encounter for follow-up examination after completed treatment for conditions other than malignant neoplasm (principal)
CPT/HCPCS: 99024

== ENCOUNTER → 2023-09-22 11:05 | Outpatient (BNVA) | payer OTHER, SELFPAY | PROVIDERS: PCP Nurse Practitioner Family; Visit Provider Surgery | DX: Z09 Encounter for follow-up examination after completed treatment for conditions other than malignant neoplasm (principal) ==

== ENCOUNTER 2023-10-03 15:45 | Outpatient (AMB) | payer OTHER, SELFPAY ==
--- NOTE | 2023-10-03 15:51 | MHC.PC.OV ---
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 Accompanied by: Self / Same As Patient Allergies ibuprofen [From Advil] Allergy (Intermediate, Verified 10/03/23 16:03) Flushing acetaminophen [From TYLENOL] Allergy (Unknown, Verified 10/03/23 16:03) RUNNY NOSE/FACIAL FLUSHING Medication List - Last Reconciled 10/03/23 by Yudi Hsu CNP No Known Home Meds Tobacco use date assessed: 08/08/23 Dental Screening Dental Screen Date: 08/08/23 HPI HPI Comments History of Present Illness Details 23-year-old male presents for hypertension follow-up He has not been on antihypertensive for the past 4 years He offers no complaints and denies acute symptoms at this time He states that he recently had surgical procedure of pilonidal cyst. Sutures were removed; incision is healing well [facility] Medical History Hypertension Surgical History Pilonidal cyst of consuelo cleft (09/05/23) No pertinent past surgical history Family History Mother High blood pressure Maternal Grandmother High blood pressure Social History Household Members: Family Both parents involved: Yes Caregiver staying overnight: No Housing: Apartment Are you a primary ambulatory care coordinator to a significant other at home: No Do you presently have visiting nurse or other home services: No 75 years or older and lives alone: No Alcohol intake: current Alcohol intake frequency: does not drink Comment: COUNT CORRECT Patient Tobacco Use Status: Former Tobacco user Tobacco use type: Smokeless Tobacco e-Cigarette/Vaping Use: Currently Using Second Hand Smoke Exposure: No service: No Current occupational status: employed 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 Oswaldo Berger, Shara De Jesus, José Miguel Barriga and colleagues, with an educational sierra from [employer]. Review of Systems Const Details: Const Denies chills, Denies fatigue, Denies fever(s), Denies headache(s) and Denies weakness ENT Denies dizziness and Denies headache(s) Card Denies chest pain, Denies lightheadedness, Denies dyspnea and Denies other (Palpitations) Resp Denies cough, Denies dyspnea, Denies wheezing and Denies other ( shortness of breath) GI Denies abdominal pain, Denies melena, Denies hematochezia, Denies change in bowel habits, Denies dyspepsia and Denies nausea Denies hematuria and Denies dysuria Musc Denies abnormal gait, Denies myalgias, Denies arthralgias, Denies numbness and Denies tingling Skin/Breast Denies rash, Denies unusual bruising and Denies wounds Neuro Denies abnormal gait, Denies dizziness, Denies headache(s), Denies memory loss, Denies numbness, Denies Sensory deficit (Neuro), Denies tingling and Denies weakness Psych Denies anxiety, Denies depression, Denies memory loss Endo Denies cold intolerance, Denies fatigue, Denies heat intolerance, Denies polydipsia and Denies polyuria Aller/Immun Denies wheezing Physical exam (Primary Care) Vital Signs: Last Vital Signs Temp 97.7 F 10/03/23 15:52 Pulse 72 10/03/23 15:52 Resp 14 10/03/23 15:52 BP 124/68 10/03/23 15:52 Pulse Ox 98 10/03/23 15:52 Oxygen Delivery Method Room Air 10/03/23 15:52 BMI result Body Mass Index 37.0 Tobacco/Smoking Status: Tobacco use Status Tobacco use date assessed 08/08/23 10/03/23 15:56 Patient Tobacco Use Status Former Tobacco user 10/03/23 15:56 Tobacco use type Smokeless Tobacco 10/03/23 15:56 e-Cigarette/Vaping Use Currently Using 10/03/23 15:56 Thrive Assessment: Date of Thrive Assessment Date Thrive assessed 08/08/23 10/03/23 15:56 Const Other: General: no acute distress and well developed Nutritional Appearance: well nourished Orientation/consciousness: patient oriented x3 [facility] Head: Yes normocephalic and Yes atraumatic Eyes General: appearance normal, both eyes and all related structures Pupils: Equal, round and reactive pupils present EOM: EOMs intact bilaterally Resp Effort & Inspection: normal respiratory effort Auscultation: clear to auscultation bilaterally Cardio Rate: regular rate Rhythm: regular rhythm Heart sounds: S1 normal heart sound present, S2 normal heart sound present, no gallops, no murmurs and no rubs GI Palpation (GI): No Abdominal aortic bruit present, Soft to palpation, nontender, No hepatosplenomegaly present and No Rebound tenderness present Auscultation: normal bowel sounds General: Yes no CVA tenderness Back/Spine/Pelvis Back: no CVA tenderness Cervical Spine: cervical ROM normal and No Cervical spine tenderness Thoracic/Lumbar Spine: thoraco-lumbar ROM normal, No pain with thoraco-lumbar ROM, No thoracic spinal tenderness and No lumbar spinal tenderness Extrem General: Yes normal to inspection, No edema and No calf tenderness Skin General: warm and dry. Normal skin color. Normal skin turgor Neuro General: patient oriented x3, gait normal and no focal neuro deficit Cranial nerves: Yes Equal, round and reactive pupils present Cognition (Neuro): normal cognition Gait exam (Neuro): Normal gait present Sensory Exam: No Sensory deficit (Neuro) Psych Appearance: grossly normal Affect: normal affect Attitude: cooperative Thought process: Normal thought process present Assessment and Plan Assessment & Plan (1) Hypertension: Code(s): I10 - Essential (primary) hypertension Plan: Blood pressure today is 124/68, within goal of less than 140/90 Healthy diet and routine exercise encouraged Advised to schedule his next physical for on/after 08/07/2024 Return with symptoms or concerns Verbalized understanding and agreed with the treatment plan (2) 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 Flaquito Mas Code(s): L - Pilonidal cyst without abscess Plan: Notes the sutures were removed and incision healing well He started on signs and symptoms of infection to return or go to the emergency room Verbalized understanding and agreed with treatment plan Coding Level of Care Code Est Pt Level 4 (11338) Complex EM visit Add On G2211 Diagnoses Hypertension I10 Low HDL (under 40) E78.6 Pilonidal cyst of cleft L
[2023-10-03 15:52] VITALS: BP 124/68; PULSE 72; RESP 14; TEMP 36.5; O2SAT 98; BMI 37.0
== END 2023-10-03 16:15 | disposition home or self-care (01) ==
PROVIDERS: PCP Nurse Practitioner Family; Visit Provider Nurse Practitioner Family
DX: I10 Essential (primary) hypertension (principal); E78.6 Lipoprotein deficiency; L05.91 Pilonidal cyst without abscess
CPT/HCPCS: 99214; G2211

== ENCOUNTER 2023-12-16 14:28 | Outpatient (AMB) | payer OTHER, SELFPAY ==
[2023-12-16 14:31] VITALS: BMI 37.0
--- NOTE | 2023-12-16 14:31 | A.OFFVIS_ITS ---
VS Expanded 12/16/23 14:31 12/16/23 14:42 Height 5 ft 11 in 5 ft 11 in Weight 265 lb 0.283 oz BMI 37.0 Intake Visit Reasons: Obesity/LVM Allergies ibuprofen [From Advil] Allergy (Intermediate, Verified 10/03/23 16:03) Flushing acetaminophen [From TYLENOL] Allergy (Unknown, Verified 10/03/23 16:03) RUNNY NOSE/FACIAL FLUSHING Nutrition Presentation Details: Pt presents for MNT f/u for obesity Pt reports having made no dietary modifications, is in contemplation stage BS Monitoring Most Recent Diabetes Results: No Data to Display HQJ-Fljkckd-Do.Jeor Equation Height: 5 ft 11 in [facility] Medical History Hypertension Surgical History Pilonidal cyst of cleft (09/05/23) No pertinent past surgical history Family History Mother High blood pressure Maternal Grandmother High blood pressure Social History Household Members: Family Both parents involved: Yes Caregiver staying overnight: No Housing: Apartment Are you a primary student career development specialist to a significant other at home: No Do you presently have visiting nurse or other home services: No 75 years or older and lives alone: No Alcohol intake: current Alcohol intake frequency: does not drink Comment: COUNT CORRECT Patient Tobacco Use Status: Former Tobacco user Tobacco use type: Smokeless Tobacco e-Cigarette/Vaping Use: Currently Using Second Hand Smoke Exposure: No service: No Current occupational status: employed Current occupation: [employer] Cognitive needs: No Hearing needs: No Vision needs: Yes Assessment & Plan Assessment & Plan (1) Obesity (BMI 30-39.9): Code(s): E66.9 - Obesity, unspecified Category: Medical Plan: Wt: 121 Kg ( 07/2023 ), 120 kg ( 12/22) Est kcal needs as per MSJ: 3498-4548 (40% carb, 30% protein/fat) Est fluid needs as per 25-30 ml/d: 3600 Est prot per day as per 1 g/kg bw: 121 Recommend fiber intake : 8-10 g per day and gradually increase to 25-28 g per day for women and 35-38 g for men or as tolerated Recommend sodium intake per day : less than 2000 mg Educated patient on: ( R = reviewed V = verbalizes understanding N/R = needs review N/A = not applicable * Food sources of carbohydrate, adequate serving sizes and its role in various health conditions: R * Differences between complex carbohydrates a simple carbohydrates, role of fiber in diet: R * Lean protein sources of foods: R * Differences between types of fats and role in diet (mono on saturated fat fatty acids, saturated fatty acids, trans fats): R V N/R * Food sources of sodium in salt and healthy modifications for heart health in kidney health: R V R/V * Vitamins and minerals: R V N/R * Healthy plate method concept: R * Physical activity: Benefits a precaution: R V N/R * Calories compositions: R * Patient Instructions: Switch lunch meals to a sandwich 2 times /wk instead of fritters, Choose low sugar beverages , see list of options, read food labels Coding Level of Care Code Nutr Indiv Subseq (69369) Diagnoses Obesity (BMI 30-39.9) E66.9 Time Spent (min) 30
== END 2023-12-16 15:00 | disposition home or self-care (01) ==
PROVIDERS: PCP Nurse Practitioner Family; Visit Provider Dietitian, Registered
DX: E66.9 Obesity, unspecified (principal)

== ENCOUNTER → 2023-12-16 14:28 | Outpatient (BNVA) | payer OTHER, SELFPAY | PROVIDERS: PCP Nurse Practitioner Family; Visit Provider Dietitian, Registered | DX: E66.9 Obesity, unspecified (principal); Z68.37 Body mass index [BMI] 37.0-37.9, adult; Z71.3 Dietary counseling and surveillance | CPT/HCPCS: 97803 ==

== ENCOUNTER 2024-10-15 14:44 | Outpatient (AMB) | payer OTHER, SELFPAY ==
--- NOTE | 2024-10-15 14:53 | MHC.PC.OV ---
Vital Signs 10/15/24 14:58 10/15/24 15:16 Height 5 ft 11 in Weight 275 lb 8 oz BMI 38.4 BP 146/92 H 130/80 Blood Pressure Location Lt brachial Lt brachial Position Sitting Sitting Respiration 18 Pulse 73 Pulse Source Pulse Oximeter Temp 97.5 F Temp Source Temporal Artery Scan Pulse Oximetry (%) 98 Oxygen Delivery Method Room Air Intake Visit Reasons: annual Intake Note: Emeka presents in the office for his annual physical. Allergies ibuprofen (From Advil) Allergy (Intermediate, Verified 10/15/24 15:07) Flushing acetaminophen (From TYLENOL) Allergy (Unknown, Verified 10/15/24 15:07) RUNNY NOSE/FACIAL FLUSHING Medication List - Last Reconciled 10/15/24 by Yudi Hsu CNP No Known Home Meds Tobacco use date assessed: 10/15/24 Dental Screening Dental Screen Date: 10/15/24 Did you have a dental visit in the last 12 months?: Yes Did you have a dental problem in the last 6 months where you did not have access to dental care?: No Was dental information given to patient?: Patient has dentist HPI HPI Comments History of Present Illness Details 24-year-old male presents for an extended physical exam. He is not on prescription medication. Past Medical History - HTN (not on meds), myopia and astigmatism (wears contacts and glasses), obesity, chronic recurrent pilonidal cyst Social History - Former smoke, quit 07/2024. Vape cannabis daily. Drinks 4-5 beers socially/twice monthly. Denies recreational drug use - Has been making healthy dietary choices in the past 2 months. Has been walking regularly for the past 1 month. Generally sleeps well - He notes that he is sexually active, in a monogamous relationship, and has no concern for STDs Health maintenance - Last eye exam was a month ago [facility]. Encourage to sign a release for his PCP to obtain his ophthalmology record - Last dental visit was 2 months ago - Last Tdap was in 10/26/2020 - Has not been vaccinated for the flu this season; declines vaccination [facility] Medical History Hypertension Surgical History Pilonidal cyst of consuelo cleft (09/05/23) No pertinent past surgical history Family History (Updated 10/15/24 @ 14:58 by Snow Mace MA) Mother High blood pressure Maternal Grandmother High blood pressure Social History (Updated 10/15/24 @ 14:58 by Snow Mace MA) Household Members: Family Both parents involved: Yes Caregiver staying overnight: No Housing: Apartment Are you a primary care center manager to a significant other at home: No Do you presently have visiting nurse or other home services: No 75 years or older and lives alone: No Alcohol intake: current Alcohol intake frequency: does not drink Comment: COUNT CORRECT Patient Tobacco Use Status: Former Tobacco user Tobacco use type: Smokeless Tobacco e-Cigarette/Vaping Use: Currently Using Second Hand Smoke Exposure: No Substance Use Type: Marijuana service: No Current occupational status: employed Current occupation: [employer] Cognitive needs: No Hearing needs: No Vision needs: Yes Questionnaire PHQ-9 Over the last 2 weeks, how often have you been bothered by any of the following problems? 1. Little interest or pleasure in doing things: not at all 2. Feeling down, depressed, or hopeless: several days 3. Trouble falling or staying asleep, or sleeping too much: not at all 4. Feeling tired or having little energy: not at all 5. Poor appetite or overeating: not at all 6. Feeling bad about yourself - or that you are a failure or have let yourself or your family down: not at all 7. Trouble concentrating on things, such as reading the newspaper or watching television: not at all 8. Moving or speaking so slowly that other people could have noticed. Or the opposite - being so fidgety or restless that you have been moving around a lot more than usual: not at all 9. Thoughts that you would be better off or of hurting yourself in some way: not at all Total score: 1 Depression Screening Interpretation: Negative Depression Screening Done: Yes 72351 - PHQ-9 Billing: Yes Source: Developed by Drs. Oswaldo Berger, Shara De Jesus, José Miguel Barriga and colleagues, with an educational sierra from [employer]. Thrive Questionnaire Date Thrive assessed: 10/15/24 I am a: Patient What is your living situation today?: I have a steady place to live Within the past 12 months, did the food you bought not last and you didn't have the money to get more?: Never true Within the past 12 months, did you worry whether your food would run out before you got money to buy more?: Never true Do you have trouble paying for medicines?: No Do you have trouble getting transportation to medical appointments?: No Do you have trouble paying your heating and electricity bill?: No Do you have trouble taking care of your child, family member or friend?: No Do you have trouble with day-to-day activities such as bathing, preparing meals, shopping, managing finances, etc.?: No Are you currently unemployed and looking for a job?: No Are you interested in more education?: Yes Please select the resources that you would like help with: None Currently or been in a relationship where the following occur: No concerns reported THRIVE Score: 0 AUDIT C Alcohol Use Questionnaire (AUDIT-C) 1. How often do you have a drink containing alcohol?: Monthly or less 2. How many drinks containing alcohol do you have on a typical day when you are drinking?: 3 or 4 3. How often do you have six or more drinks on one occasion?: Never Total Score: 2 DANII-7 AMB Questionnaire DANII-7 Date DANII - 7 assessed: 10/15/24 Feeling nervous, anxious, or on edge: 0 = Not at all Not being able to stop or control worryin = Not at all Worrying too much about different things: 1 = Several days Trouble relaxin = Not at all Being so restless that it is hard to sit still: 0 = Not at all Becoming easily annoyed or irritable: 1 = Several days Feeling afraid as if something awful might happen: 0 = Not at all Total DANII-7 score (0-4 normal; 5-9 mild; 10-14 moderate; 15-21 severe): 2 Source: Developed by Drs. Oswaldo Berger, Shara De Jesus, José Miguel Barriga and colleagues, with an educational sierra from [employer] DANII-7 Assessment Billing DANII-7 Assessment Tool: DANII-7 Assessment 72086 Review of Systems Const Details: Denies chills, Denies fatigue, Denies fever(s), Denies headache(s) and Denies weakness HEENT Denies change in vision, Denies dizziness, Denies headache(s), Denies hearing loss, Denies nasal congestion, Denies sinus pain, Denies sinus pressure and Denies sore throat Card Denies chest pain, Denies lightheadedness, Denies dyspnea and Denies other (palpitations) Resp Denies cough, Denies dyspnea and Denies wheezing GI Denies abdominal pain, Denies melena, Denies hematochezia, Denies change in bowel habits, Denies dyspepsia and Denies nausea Denies hematuria and Denies dysuria Musc Denies abnormal gait, Denies myalgias, Denies arthralgias, Denies numbness and Denies tingling Skin/Breast Denies rash, Denies unusual bruising and Denies wounds Neuro Denies abnormal gait, Denies dizziness, Denies headache(s), Denies memory loss, Denies numbness, Denies Sensory deficit (Neuro), Denies tingling and Denies weakness Psych Denies anxiety, Denies depression and Denies memory loss Endo Denies cold intolerance, Denies fatigue, Denies heat intolerance, Denies polydipsia and Denies polyuria Jake/Lymph Denies easy bleeding and Denies easy bruising Aller/Immun Denies wheezing Physical exam (Primary Care) Vital Signs: Last Vital Signs Temp 97.5 F 10/15/24 14:58 Pulse 73 10/15/24 14:58 BP 146/92 H 10/15/24 14:58 Pulse Ox 98 10/15/24 14:58 Oxygen Delivery Method Room Air 10/15/24 14:58 BMI result Body Mass Index 38.4 Tobacco/Smoking Status: Tobacco use Status Tobacco use date assessed 10/15/24 10/15/24 15:01 Patient Tobacco Use Status Former Tobacco user 10/15/24 15:01 Tobacco use type Smokeless Tobacco 10/15/24 14:58 e-Cigarette/Vaping Use Currently Using 10/15/24 14:58 PHQ-9: PHQ-9 Score PHQ-9: Total score 1 10/15/24 15:01 Depression Screening Interpretation: Negative Thrive Assessment: Date of Thrive Assessment Date Thrive assessed 10/15/24 10/15/24 15:01 Currently or been in a relationship where the following occur: No concerns reported Const Other: General: no acute distress, well developed, alert and awake Nutritional Appearance: well nourished Orientation/consciousness: patient oriented x3 [facility] Head: Yes normocephalic and Yes atraumatic Ears: hearing grossly normal bilaterally and TM's normal bilaterally General nose exam: Normal external nose present and Normal nares present Mouth: Normal oral and palatal mucosa present and moist mucous membranes Teeth and gingiva: dentition normal Throat: Yes oropharynx normal Eyes Pupils: Equal, round and reactive pupils present and Pupil accommodation reflex normal EOM: EOMs intact bilaterally Neck Neck: Yes normal visual inspection, Yes no lymphadenopathy and Yes trachea midline Thyroid: Thyroid normal Carotids: no bruits Lymphatic: no lymphadenopathy noted Chest Chest palpation & inspection: normal inspection of the chest Resp Effort & Inspection: normal respiratory effort Auscultation: clear to auscultation bilaterally Cardio Rate: regular rate Rhythm: regular rhythm Heart sounds: S1 normal heart sound present, S2 normal heart sound present, no gallops, no murmurs and no rubs Bruits: no abdominal aortic bruits and no carotid bruits GI Palpation (GI): No Abdominal aortic bruit present, Soft to palpation, nontender, No hepatosplenomegaly present and No Rebound tenderness present Auscultation: normal bowel sounds General: Yes no CVA tenderness Back/Spine/Pelvis Back: no CVA tenderness Cervical Spine: cervical ROM normal and No Cervical spine tenderness Thoracic/Lumbar Spine: thoraco-lumbar ROM normal, No pain with thoraco-lumbar ROM, No thoracic spinal tenderness and No lumbar spinal tenderness Skin General: warm and dry. Normal skin color. Normal skin turgor Lesions: no lesions Rashes: no rashes Trauma: no lacerations or abrasions Wounds: no wounds Nails: normal Neuro General: patient oriented x3, gait normal and CN's II-XI intact bilaterally Cranial nerves: Yes Equal, round and reactive pupils present Cognition (Neuro): normal cognition Gait exam (Neuro): Normal gait present Motor exam (neuro): 5/5 motor strength present throughout Sensory Exam: No Sensory deficit (Neuro) Deep tendon reflexes (DTR's): Right patellar reflex intensity grade: 2+ and Left patellar reflex intensity grade: 2+ Extrem General: Yes normal to inspection, No edema and No calf tenderness Psych Appearance: grossly normal Affect: normal affect Attitude: cooperative Thought process: Normal thought process present Coding Level of Care Code Est Pt Prev Care 18-39y(36921) Diagnoses Normal physical examination, routine Z00.00 Obesity (BMI 30-39.9) E66.9 Engages in vaping Z72.89 Laboratory tests ordered as part of a complete physical exam (CPE) Z00.00 Additional Codes DANII-7 Assessment Billing - DANII-7 Assessment Tool: DANII-7 Assessment 95005 ([id number]) PHQ-9 - 06818 - PHQ-9 Billing: Yes ([id number]) Assessment & Plan Assessment & Plan (1) Normal physical examination, routine: Code(s): Z00.00 - Encounter for general adult medical examination without abnormal findings Category: Medical Plan: No significant functional limitation noted. Healthy diet and routine exercise encouraged. Advised to monitor blood pressure at least weekly and report readings persistently above 140/90. Perform lab work and follow-up for a telehealth visit for labs review in 2-4 weeks. Return sooner with symptoms or concerns. Verbalized understanding and agreed with the plan. (2) Obesity (BMI 30-39.9): Code(s): E66.9 - Obesity, unspecified Category: Medical Plan: He currently weighs 275 lb, BMI is 38.4. Declines referral to infrastructure solutions architect/dietitian or weight management clinic at this time. Notes that he will continue to make lifestyle changes. Healthy diet and routine exercise encouraged. Follow-up as needed. Verbalized understanding and agreed with the plan. (3) Engages in vaping: Code(s): Z72.89 - Other problems related to lifestyle Category: Medical Plan: He vapes cannabis daily. Instructed on the health risks and complications of vaping and cessation encouraged. Verbalized understanding and agreed with the plan. (4) Laboratory tests ordered as part of a complete physical exam (CPE): Code(s): Z00.00 - Encounter for general adult medical examination without abnormal findings Category: Medical Plan: Fasting labs ordered as part of a complete physical exam. Advised to fast for at least 10 hours before getting labs drawn. May drink water Verbalized understanding and agreed with treatment plan. Orders: Orders Complete Blood Count Auto Diff Today Z00.00 - Encounter for general adult medical examination without abnormal findings Lipid Panel Today Z00.00 - Encounter for general adult medical examination without abnormal findings Microalbumin, Random (w Creat) Today Z00.00 - Encounter for general adult medical examination without abnormal findings UA CC w/rflx Micro + Cult Today Z00.00 - Encounter for general adult medical examination without abnormal findings Vitamin D 25-OH Total Today Z00.00 - Encounter for general adult medical examination without abnormal findings Comprehensive [place]. Panel Fast Today Z00.00 - Encounter for general adult medical examination without abnormal findings TSH reflex Free T4 Today Z00.00 - Encounter for general adult medical examination without abnormal findings
[2024-10-15 14:58] VITALS: BP 146/92; PULSE 73; TEMP 36.4; O2SAT 98; BMI 38.4
[2024-10-15 15:16] VITALS: BP 130/80; RESP 18
== END 2024-10-15 15:30 | disposition home or self-care (01) ==
LOC: HO.HMCFM 14:45
PROVIDERS: PCP Nurse Practitioner Family; Visit Provider Nurse Practitioner Family
DX: Z00.00 Encounter for general adult medical examination without abnormal findings (principal); E66.9 Obesity, unspecified; Z72.89 Other problems related to lifestyle; Z68.38 Body mass index [BMI] 38.0-38.9, adult

== ENCOUNTER → 2024-10-15 14:44 | Outpatient (BNVA) | payer OTHER, SELFPAY | PROVIDERS: PCP Nurse Practitioner Family; Visit Provider Nurse Practitioner Family | DX: Z00.00 Encounter for general adult medical examination without abnormal findings (principal); E66.9 Obesity, unspecified; Z68.38 Body mass index [BMI] 38.0-38.9, adult; Z72.89 Other problems related to lifestyle; Z13.31 Encounter for screening for depression; Z13.39 Encounter for screening examination for other mental health and behavioral disorders | CPT/HCPCS: 96127 ==

== ENCOUNTER 2024-11-01 09:49 | Outpatient (REF) | payer OTHER, SELFPAY ==
[2024-11-01 11:35] LABS: MANUAL DIFF FLAG NO
[2024-11-01 11:42] LABS: Hematocrit 41.6 % (42.0-52.0); Hemoglobin 14.0 g/dl (14.0-18.0); Imm Gran Abs Auto 0.03 X10*3/uL (0.00-0.03); Imm Gran Pct Auto 0.4 % (0.0-0.4); Lymphocytes Absolute Auto 3.0 X10*3/uL (1.2-4.9); Mean Corpuscular HGB Conc 33.7 g/dl (31.0-36.0); Mean Corpuscular Hemoglobin 29.0 pg (27.0-33.0); Mean Corpuscular Volume 86.1 fL (80.0-98.0); NRBC Abs Auto 0.000 X10*3/uL (0.0-0.012); NRBC Pct Auto 0.0 /100WBC (0.0-0.2); Platelet Count 214 X10*3/uL (160-400); Red Blood Count 4.83 X10*6/uL (4.60-5.80); White Blood Count 7.7 X10*3/uL (4.8-10.8)
[2024-11-01 12:00] LABS: Alanine Aminotransferase 48 U/L (0-40); Albumin Level 4.5 g/dL (3.5-5.0); Alkaline Phosphatase 71 U/L (39-117); Anion Gap 8 (12-20); Aspartate Amino Transferase 40 U/L (5-37); Blood Urea Nitrogen 9 mg/dL (9-16); Calcium 8.9 mg/dL (8.4-10.2); Carbon Dioxide 29 mmol/L (22-29); Chloride 106 mmol/L (96-108); Cholesterol 142 mg/dL (<200); Estimated Glomerular Filt Rate > 60; HDL Cholesterol 33 mg/dL (>40); Potassium 4.2 mmol/L (3.3-5.1); Sodium 139 mmol/L (135-145); Total Protein 7.0 g/dL (6.5-8.0); Triglycerides 134 mg/dL (<150)
[2024-11-01 14:17] LABS: Appearance Urine Clear; Glucose Urine UA Negative (Negative); PH 7.0 (5.0-9.0); Specific Gravity - Urine <= 1.005 (1.005-1.025)
== END 2024-11-01 09:50 | disposition home or self-care (01) ==
LOC: HO.WFDLDS 09:49
PROVIDERS: Visit Provider Nurse Practitioner Family
DX: Z00.00 Encounter for general adult medical examination without abnormal findings (principal); Z13.220 Encounter for screening for lipoid disorders; Z13.29 Encounter for screening for other suspected endocrine disorder
CPT/HCPCS: 36415; 80053; 80061; 81003; 82043; 82306; 82570; 84443; 85025

== ENCOUNTER 2024-11-05 13:30 | Outpatient (AMB) | payer OTHER, SELFPAY ==
--- NOTE | 2024-11-05 13:25 | A.OFFPC_ITS ---
Intake Visit Reasons: Telehealth 2-4 weeks labs review Intake Note: [facility] lab results. Allergies ibuprofen (From Advil) Allergy (Intermediate, Verified 11/05/24 13:26) Flushing acetaminophen (From TYLENOL) Allergy (Unknown, Verified 11/05/24 13:26) RUNNY NOSE/FACIAL FLUSHING Tobacco use date assessed: 11/05/24 Dental Screening Dental Screen Date: 11/05/24 Did you have a dental visit in the last 12 months?: Yes Did you have a dental problem in the last 6 months where you did not have access to dental care?: No Was dental information given to patient?: Patient has dentist HPI HPI Comments History of Present Illness Details 24-year-old male [facility] review of recent lab results. He notes that he has been making healthy dietary choices and exercising regularly. He drinks less than 6 beers weekly on weekends. He offers no complaints and denies acute symptoms at this time. [facility] Medical History Hypertension Surgical History Pilonidal cyst of consuelo cleft (09/05/23) No pertinent past surgical history Family History Mother High blood pressure Maternal Grandmother High blood pressure Social History (Updated 11/05/24 @ 13:27 by Snow Mace MA) Household Members: Family Both parents involved: Yes Caregiver staying overnight: No Housing: Apartment Are you a primary patient care specialist to a significant other at home: No Do you presently have visiting nurse or other home services: No 75 years or older and lives alone: No Alcohol intake: current Alcohol intake frequency: does not drink Comment: COUNT CORRECT Patient Tobacco Use Status: Former Tobacco user Tobacco use type: Smokeless Tobacco e-Cigarette/Vaping Use: Currently Using Second Hand Smoke Exposure: No service: No Current occupational status: employed Current occupation: Sm[employer] P[employer] Cognitive needs: No Hearing needs: No Vision needs: Yes Questionnaire Thrive Questionnaire Date Thrive assessed: 10/15/24 DANII-7 AMB Questionnaire DANII-7 Date DANII - 7 assessed: 10/15/24 Source: Developed by Drs. Oswaldo Berger, Shara De Jesus, José Miguel Barriga and colleagues, with an educational sierra from [employer]. Review of Systems Const Details: Denies chills, Denies fatigue, Denies fever(s), Denies headache(s) and Denies weakness Cardiac Denies chest pain, Denies claudication, Denies leg edema, Denies lightheadedness, Denies palpitations, Denies dyspnea, Denies dyspnea on exertion, Denies orthopnea and Denies other (Loss of consciousness) Resp Denies cough, Denies excessive phlegm production, Denies dyspnea, Denies dyspnea on exertion, Denies snoring and Denies wheezing Physical exam (Primary Care) Tobacco/Smoking Status: Tobacco use Status Tobacco use date assessed 11/05/24 11/05/24 13:29 Patient Tobacco Use Status Former Tobacco user 11/05/24 13:29 Tobacco use type Smokeless Tobacco 11/05/24 13:29 e-Cigarette/Vaping Use Currently Using 11/05/24 13:29 Thrive Assessment: Date of Thrive Assessment Date Thrive assessed 10/15/24 11/05/24 13:29 Const Other: Patient is alert and oriented x3 Telehealth Telehealth Telehealth Platform: Telephone Location of provider rendering services: practice address Location of patient: address on file Patient Identification confirmed using: Name, : Yes Telehealth method: voice only Patient verbally consented to treatment: Yes Patient verbally consented to billing insurance company: Yes Patient informed of any privacy concerns related to visit: Yes Coding Level of Care Code Tele New Pt Level 3 (03971) Diagnoses Elevated fasting glucose R73.01 Transaminitis R74.01 Time Spent (min) 15 Assessment & Plan Assessment & Plan (1) Elevated fasting glucose: Code(s): R73.01 - Impaired fasting glucose Category: Medical Plan: Fasting glucose is slightly elevated, 104. Healthy diet and routine exercise encouraged. Will recheck fasting glucose and make changes as needed. Verbalized understanding and agreed with the plan. (2) Transaminitis: Code(s): R74.01 - Elevation of levels of liver transaminase levels Category: Medical Plan: Recent AST and ALT are slightly elevated, 40 and 48 respectively. Healthy diet/weight management encouraged. Will recheck liver enzymes. Fast for 10-12 hours, may drink water, and perform blood work before next visit. Follow-up in 3 months for hypertension and labs reviewed. Return sooner with symptoms or concerns. Verbalized understanding and agreed with plan. Orders: Orders Liver Panel 3 Months R74.01 - Elevation of levels of liver transaminase levels Glucose Fasting 3 Months R73.01 - Impaired fasting glucose
== END 2024-11-05 14:01 | disposition home or self-care (01) ==
LOC: HO.HMCFM 13:30
PROVIDERS: PCP Nurse Practitioner Family; Visit Provider Nurse Practitioner Family
DX: R73.01 Impaired fasting glucose (principal); R74.01 Elevation of levels of liver transaminase levels

== ENCOUNTER 2025-02-08 08:24 | Outpatient (REF) | payer OTHER, SELFPAY ==
[2025-02-08 11:35] LABS: Alanine Aminotransferase 59 U/L (0-40); Albumin Level 4.7 g/dL (3.5-5.0); Alkaline Phosphatase 68 U/L (39-117); Aspartate Amino Transferase 38 U/L (5-37); Total Protein 7.1 g/dL (6.5-8.0)
== END 2025-02-08 08:25 | disposition home or self-care (01) ==
LOC: HO.WFDLDS 08:24
PROVIDERS: Visit Provider Nurse Practitioner Family
DX: R73.01 Impaired fasting glucose (principal); R74.01 Elevation of levels of liver transaminase levels
CPT/HCPCS: 36415; 80076; 82947

== ENCOUNTER 2025-02-11 15:08 | Outpatient (AMB) | payer OTHER, SELFPAY ==
--- NOTE | 2025-02-11 15:13 | MHC.PC.OV ---
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 Allergies ibuprofen (From Advil) Allergy (Intermediate, Verified 02/11/25 15:20) Flushing acetaminophen (From TYLENOL) Allergy (Unknown, Verified 02/11/25 15:20) RUNNY NOSE/FACIAL FLUSHING Tobacco use date assessed: 02/11/25 Dental Screening Dental Screen Date: 02/11/25 Did you have a dental visit in the last 12 months?: Yes Did you have a dental problem in the last 6 months where you did not have access to dental care?: No Was dental information given to patient?: Patient has dentist HPI HPI Comments History of Present Illness Details 24-year-old male presents for hypertension and review of recent lab results. He was on Lisinopril for a year, between [id number]. He notes that he has been making healthy lifestyle choices. He offers no complaints and denies acute symptoms at this time. [facility] Medical History Hypertension Surgical History Pilonidal cyst of consuelo cleft (09/05/23) No pertinent past surgical history Family History Mother High blood pressure Maternal Grandmother High blood pressure Social History (Updated 02/11/25 @ 15:21 by LEYDI Jay) Household Members: Family Both parents involved: Yes Caregiver staying overnight: No Housing: Apartment Are you a primary care process manager to a significant other at home: No Do you presently have visiting nurse or other home services: No 75 years or older and lives alone: No Alcohol intake: current Alcohol intake frequency: does not drink Comment: COUNT CORRECT Patient Tobacco Use Status: Never used Tobacco e-Cigarette/Vaping Use: Former Use Second Hand Smoke Exposure: No Substance Use Type: Marijuana service: No Current occupational status: employed 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 Cognitive needs: No Hearing needs: No Vision needs: Yes Questionnaire Thrive Questionnaire Date Thrive assessed: 10/15/24 I am a: Patient What is your living situation today?: I have a steady place to live Within the past 12 months, did the food you bought not last and you didn't have the money to get more?: Never true Within the past 12 months, did you worry whether your food would run out before you got money to buy more?: Never true Do you have trouble paying for medicines?: No Do you have trouble getting transportation to medical appointments?: No Do you have trouble paying your heating and electricity bill?: No Do you have trouble taking care of your child, family member or friend?: No Do you have trouble with day-to-day activities such as bathing, preparing meals, shopping, managing finances, etc.?: No Are you currently unemployed and looking for a job?: No Are you interested in more education?: Yes Please select the resources that you would like help with: None Currently or been in a relationship where the following occur: No concerns reported THRIVE Score: 0 DANII-7 AMB Questionnaire DANII-7 Date DANII - 7 assessed: 10/15/24 Source: Developed by Drs. Oswaldo Berger, Shara De Jesus, José Miguel Barriga and colleagues, with an educational sierra from [employer]. Review of Systems Const Details: Const Denies chills, Denies fatigue, Denies fever(s), Denies headache(s) and Denies weakness ENT Denies dizziness and Denies headache(s) Card Denies chest pain, Denies lightheadedness, Denies dyspnea and Denies other (Palpitations) Resp Denies cough, Denies dyspnea, Denies wheezing and Denies other ( shortness of breath) GI Denies abdominal pain, Denies melena, Denies hematochezia, Denies change in bowel habits, Denies dyspepsia and Denies nausea Denies hematuria and Denies dysuria Musc Denies abnormal gait, Denies myalgias, Denies arthralgias, Denies numbness and Denies tingling Skin/Breast Denies rash, Denies unusual bruising and Denies wounds Neuro Denies abnormal gait, Denies dizziness, Denies headache(s), Denies memory loss, Denies numbness, Denies Sensory deficit (Neuro), Denies tingling and Denies weakness Psych Denies anxiety, Denies depression, Denies memory loss Endo Denies cold intolerance, Denies fatigue, Denies heat intolerance, Denies polydipsia and Denies polyuria Aller/Immun Denies wheezing Physical exam (Primary Care) Vital Signs: Last Vital Signs Temp 97.6 F 02/11/25 15:22 Pulse 66 02/11/25 15:22 Resp 16 02/11/25 15:22 BP 138/68 02/11/25 15:22 Pulse Ox 99 02/11/25 15:22 Oxygen Delivery Method Room Air 02/11/25 15:22 BMI result Body Mass Index 24.7 Tobacco/Smoking Status: Tobacco use Status Tobacco use date assessed 02/11/25 02/11/25 15:28 Patient Tobacco Use Status Never used Tobacco 02/11/25 15:28 Tobacco use type 02/11/25 15:28 e-Cigarette/Vaping Use Former Use 02/11/25 15:28 Thrive Assessment: Date of Thrive Assessment Date Thrive assessed 10/15/24 02/11/25 15:13 Currently or been in a relationship where the following occur: No concerns reported Const Other: General: no acute distress and well developed Nutritional Appearance: well nourished Orientation/consciousness: patient oriented x3 HENMT Head: Yes normocephalic and Yes atraumatic Eyes General: appearance normal, both eyes and all related structures Pupils: Equal, round and reactive pupils present EOM: EOMs intact bilaterally Resp Effort & Inspection: normal respiratory effort Auscultation: clear to auscultation bilaterally Cardio Rate: regular rate Rhythm: regular rhythm Heart sounds: S1 normal heart sound present, S2 normal heart sound present, no gallops, no murmurs and no rubs Extrem General: Yes normal to inspection, No edema and No calf tenderness Skin General: warm and dry. Normal skin color. Normal skin turgor Neuro General: patient oriented x3, gait normal and no focal neuro deficit Cranial nerves: Yes Equal, round and reactive pupils present Cognition (Neuro): normal cognition Gait exam (Neuro): Normal gait present Sensory Exam: No Sensory deficit (Neuro) Psych Appearance: grossly normal Affect: normal affect Attitude: cooperative Thought process: Normal thought process present Results AMB Hemoglobin A1c AMB Hemoglobin A1c 5.2 % Last Edit by LEYDI Jay on 02/11/25 15:38 Coding Level of Care Code Est Pt Level 3 (19065) Diagnoses Hypertension I10 Transaminitis R74.01 Elevated fasting glucose R73.01 Assessment & Plan Assessment & Plan (1) Hypertension: Code(s): I10 - Essential (primary) hypertension Category: Medical Plan: Blood pressure is 138/68, within goal of less than 140/90. Continue current treatment. Low-sodium diet encouraged. Follow-up for transfer of care with a new provider within the practice. Verbalized understanding and agreed with the plan. (2) Transaminitis: Code(s): R74.01 - Elevation of levels of liver transaminase levels Category: Medical Plan: Recent AST and ALT slightly elevated, 38 and 59 respectively, previous level were 40 and 48 respectively. Likely due to fatty liver deposit. Healthy diet/weight management encouraged. Will monitor liver enzyme annually or if clinically indicated. Verbalized understanding and agreed with the plan. (3) Elevated fasting glucose: Code(s): R73.01 - Impaired fasting glucose Category: Medical Plan: Recent fasting glucose is slightly elevated, 101, previous fasting glucose was 104. A1c today is 5.2%. Healthy diet and routine exercise encouraged. Verbalized understanding and agreed with the plan. Orders: Orders AMB Hemoglobin A1c Today R73.01 - Impaired fasting glucose
[2025-02-11 15:22] VITALS: BP 138/68; PULSE 66; RESP 16; TEMP 36.4; O2SAT 99; BMI 24.7
== END 2025-02-11 15:43 | disposition home or self-care (01) ==
LOC: HO.HMCFM 15:09
PROVIDERS: PCP Nurse Practitioner Family; Visit Provider Nurse Practitioner Family
DX: I10 Essential (primary) hypertension (principal); R74.01 Elevation of levels of liver transaminase levels; R73.01 Impaired fasting glucose

== ENCOUNTER → 2025-02-11 15:08 | Outpatient (BNVA) | payer OTHER, SELFPAY | PROVIDERS: PCP Nurse Practitioner Family; Visit Provider Nurse Practitioner Family | DX: I10 Essential (primary) hypertension (principal); R74.01 Elevation of levels of liver transaminase levels; R73.01 Impaired fasting glucose; Z79.899 Other long term (current) drug therapy | CPT/HCPCS: 83036 ==